=== PATIENT | male | born 1985 | race African-American/Black ===

== ENCOUNTER 2016-10-09 05:34 | Emergency (ER) | payer MEDICAID ==
[~2016-10-09] VITALS: Ht 175.3 cm; Wt 70.0 kg
[2016-10-09 05:35] VITALS: BP 124/91
[2016-10-09] MEDS ORDERED: IBUPROFEN 200 MG TABLET ONE (07:19)
[2016-10-09] MEDS ORDERED: BACITRACIN ZINC OINT 500U/GM, 0.9 GM ONE ×2 (07:29→07:30)
[2016-10-09] MEDS ORDERED: IBUPROFEN 200 MG TABLET PO ONE (07:30)
== END 2016-10-09 08:05 | disposition home or self-care (01) ==
LOC: ED 07:59
DX: S80.811A Abrasion, right lower leg, initial encounter (principal); W57.XXXA Bitten or stung by nonvenomous insect and other nonvenomous arthropods, initial encounter; Y93.89 Activity, other specified; Y92.89 Other specified places as the place of occurrence of the external cause; Y99.8 Other external cause status
CPT/HCPCS: 99282